=== PATIENT | male | born 1955 | race Caucasian/White ===

== ENCOUNTER 2019-09-07 22:43 | Emergency (ER) | payer BC, MEDICARE ==
[~2019-09-07] VITALS: Ht 180.3 cm; Wt 101.4 kg
[2019-09-08 00:05] LABS: INFLUENZA A AMPLIFICATION NEGATIVE (NEGATIVE); INFLUENZA B AMPLIFICATION NEGATIVE (NEGATIVE)
[2019-09-08] MEDS ORDERED: ACETAMINOPHEN TAB 650MG DOSE (2X325MG) PO ONE (00:15)
[2019-09-08 01:41] LABS: BASO % 0.7 % (0.0-1.0); EOS % 0.5 % (0.0-3.0); HEMATOCRIT 54.9 % (42.0-52.0); HEMOGLOBIN 17.2 g/dl (13.5-17.5); LYMPH # 0.5 10^3/uL (1.5-5.0); LYMPH % 7.9 % (24.0-44.0); MEAN CORPUSCULAR HEMOGLOBIN 27.7 pg (27.0-33.0); MEAN CORPUSCULAR HGB CONC 31.3 g/dl (32.0-36.5); MEAN CORPUSCULAR VOLUME 88.5 fl (80.0-96.0); MONO # 0.4 10^3/uL (0.0-0.8); MONO % 6.3 % (0.0-5.0); NEUTROPHILS # 5.1 10^3/uL (1.5-8.5); NEUTROPHILS % 83.9 % (36.0-66.0); PLATELET COUNT, AUTOMATED 182 10^3/uL (150-450); WHITE BLOOD COUNT 6.1 10^3/uL (4.0-10.0)
--- NOTE | 2019-09-08 02:05 | REPVR ---
PROCEDURE INFORMATION: Exam: CT Chest Without Contrast Exam date and time: 09/08/2019 1:28 AM Age: 63 years old Clinical history: Cough; Additional info: Chf vs pneumonia TECHNIQUE: Imaging protocol: Computed tomography of the chest without contrast. 3D rendering: MIP reconstructed images were created and reviewed. Radiation optimization: All CT scans at this facility use at least one of these dose optimization techniques: automated exposure control; mA and/or kV adjustment per patient size (includes targeted exams where dose is matched to clinical indication); or iterative reconstruction. COMPARISON: CR Chest, 2 view PA, Lat 09/08/2019 12:57 AM FINDINGS: Lungs: Bilateral dependent and linear atelectasis. Pleural space: Unremarkable. No pneumothorax. No pleural effusion. Heart: Atherosclerotic disease of the coronary arteries. Mediastinum: Small hiatal hernia. Suggestion of gastroesophageal reflux. Aorta: Atherosclerotic disease of the thoracic aorta. Lymph nodes: Unremarkable. No enlarged lymph nodes. Liver: Hepatomegaly and steatosis. Gallbladder and bile ducts: Cholelithiasis. No specific evidence of acute cholecystitis. Kidneys and ureters: Partially visualized simple left renal cyst measuring at least 1.6 cm in diameter. Bones/joints: Multilevel degenerative disc disease of the thoracic spine. Chronic appearing compression deformity of T6. Suggestion of an old healed fracture deformity of the sternum. Soft tissues: Unremarkable. IMPRESSION: Bilateral dependent and linear atelectasis. No evidence of pulmonary edema. Small hiatal hernia. Suggestion of gastroesophageal reflux. Hepatomegaly and steatosis. Cholelithiasis. No specific evidence of acute cholecystitis. Electronically signed by: Chong Gross On 09/08/2019 02:04:29 AM
[2019-09-08 02:23] LABS: BLOOD UREA NITROGEN 12 MG/DL (7-18); CALCIUM LEVEL 8.9 MG/DL (8.8-10.2); CARBON DIOXIDE LEVEL 22 MEQ/L (21-32); CHLORIDE LEVEL 106 MEQ/L (98-107); CREATININE FOR GFR 1.35 MG/DL (0.70-1.30); GLOMERULAR FILTRATION RATE 57.2 (>49); GLUCOSE, FASTING 126 MG/DL (70-100); NT-PRO BNP 151 PG/ML (<125); POTASSIUM SERUM 4.9 MEQ/L (3.5-5.1); SODIUM LEVEL 138 MEQ/L (136-145)
[2019-09-08 02:53] LABS: CK-MB VALUE MASS 1.7 NG/ML (<3.6); CPK CREATINE PHOSPHOKINASE 264 U/L (39-308); MB/CK RELATIVE INDEX 0.64 (< OR =4); TROPONIN I < 0.02 NG/ML (< 0.10)
[2019-09-08 03:21] VITALS: BP 111/66
--- NOTE | 2019-09-08 08:16 | REP ---
Chest x-ray: Two views. History: Cough. Findings: The patient is rotated slightly to the right. There is some scalloping of the right hemidiaphragm. Pleural angles are sharp. No infiltrate is seen. Heart is not enlarged. No significant bony abnormality is appreciated. Impression: No acute disease. Electronically Signed by Travis Park MD 09/08/2019 08:07 A
--- NOTE | 2019-09-09 21:54 | ECGEPIP ---
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
== END 2019-09-08 03:22 | disposition home or self-care (01) ==
LOC: M ED 22:43
DX: J06.9 Acute upper respiratory infection, unspecified (principal); B34.8 Other viral infections of unspecified site; I10 Essential (primary) hypertension; I25.10 Atherosclerotic heart disease of native coronary artery without angina pectoris; E78.5 Hyperlipidemia, unspecified; Z95.5 Presence of coronary angioplasty implant and graft

== ENCOUNTER 2021-08-25 16:20 | Emergency (ER) | payer BC, OTHER ==
[~2021-08-25] VITALS: Ht 180.3 cm; Wt 99.2 kg
[2021-08-25] MEDS ORDERED: ASPIRIN 81 MG CHEW TABLET PO ONE (17:55)
--- NOTE | 2021-08-25 18:19 | REP ---
INDICATION: CHEST PAIN. COMPARISON: 09/08/2019. TECHNIQUE: Single portable AP view of the chest was performed. FINDINGS: There is mild bibasilar fibro atelectatic change. There is no acute infiltrate. The heart is upper limits of normal in size. There is tortuosity of the thoracic aorta. The mediastinal silhouette is unchanged. IMPRESSION: No acute pulmonary disease.Stable chronic changes. <Electronically signed by José Diaz > 08/25/21 0145
[2021-08-25 18:22] LABS: BASO # 0.1 10^3/uL (0.0-0.2); BASO % 0.8 % (0.0-1.0); EOS # 0.2 10^3/uL (0.0-0.5); EOS % 2.4 % (0.0-3.0); HEMATOCRIT 53.5 % (42.0-52.0); HEMOGLOBIN 17.2 g/dl (13.5-17.5); LYMPH # 3.4 10^3/uL (1.5-5.0); LYMPH % 36.2 % (24.0-44.0); MEAN CORPUSCULAR HEMOGLOBIN 28.6 pg (27.0-33.0); MEAN CORPUSCULAR HGB CONC 32.1 g/dl (32.0-36.5); MONO # 0.7 10^3/uL (0.0-0.8); MONO % 6.9 % (2.0-8.0); NEUTROPHILS % 53.4 % (36.0-66.0); PLATELET COUNT, AUTOMATED 257 10^3/uL (150-450); RED BLOOD COUNT 6.01 10^6/uL (4.30-6.10); WHITE BLOOD COUNT 9.4 10^3/uL (4.0-10.0)
[2021-08-25 19:00] LABS: ALT/SGPT 33 U/L (12-78); BILIRUBIN,DIRECT 0.1 MG/DL (0.0-0.2); BILIRUBIN,TOTAL 0.4 MG/DL (0.2-1.0); BLOOD UREA NITROGEN 16 MG/DL (7-18); CALCIUM LEVEL 10.3 MG/DL (8.8-10.2); CARBON DIOXIDE LEVEL 31 MEQ/L (21-32); CHLORIDE LEVEL 104 MEQ/L (98-107); CREATININE FOR GFR 1.12 MG/DL (0.70-1.30); GLOMERULAR FILTRATION RATE > 60.0 (>49); GLUCOSE, FASTING 61 MG/DL (70-100); LIPASE 86 U/L (73-393); NT-PRO BNP 105 PG/ML (<125); POTASSIUM SERUM 3.8 MEQ/L (3.5-5.1); SODIUM LEVEL 141 MEQ/L (136-145)
[2021-08-25] MEDS ORDERED: ISOVUE-370 76% 100ML VIAL As Ordered ONE (19:26)
--- OUTSIDE RECORDS SUMMARY | 2021-08-25 19:27 | CCD ---
Author Author [facility] Organization [facility] Address Unknown Phone Unavailable Care Team Providers Care Senior Designer Name Role Phone Ricardo Urena MD Unavailable Unavailable Ricardo Urena MD Unavailable Unavailable Ricardo Urena MD Unavailable Unavailable Ricardo Urean MD Unavailable Unavailable Ricardo Urena MD Unavailable Unavailable Ricardo Urena MD Unavailable Unavailable Ricardo Urena MD Unavailable Unavailable Ricardo Urena MD Unavailable Unavailable Ricardo Urena MD Unavailable Unavailable Ricardo Urena MD Unavailable Unavailable Ricardo Urena MD Unavailable Unavailable Ricardo Urena MD Unavailable Unavailable Ricardo Urena MD Unavailable Unavailable Ricrado Urena MD Unavailable Unavailable Ricardo Urena MD Unavailable Unavailable Ricardo Urena MD Unavailable Unavailable Ricardo Urena MD Unavailable Unavailable Ricardo Urena MD Unavailable Unavailable Ricardo Urena MD Unavailable Unavailable Ricardo Urena MD Unavailable Unavailable Ricardo Urena MD Unavailable Unavailable Ricardo Urena MD Unavailable Unavailable Ricardo Urena MD Unavailable Unavailable Ricardo Urena MD Unavailable Unavailable Ricardo Urena MD Unavailable Unavailable Ricardo Urena MD Unavailable Unavailable Ricardo Urena MD Unavailable Unavailable Ricardo Urena MD Unavailable Unavailable Ricardo Urena MD Unavailable Unavailable Ricardo Urena MD Unavailable Unavailable Ricardo Urena MD Unavailable Unavailable Ricardo Urena MD Unavailable Unavailable Ricardo Urena MD Unavailable Unavailable Ricardo Urena MD Unavailable Unavailable Ricardo Urena MD Unavailable Unavailable Ricardo Urena MD Unavailable Unavailable Ricardo Urena MD Unavailable Unavailable Ricardo Urena MD Unavailable Unavailable Ricardo Urena MD Unavailable Unavailable Ricardo Urena MD Unavailable Unavailable Ricardo Urena MD Unavailable Unavailable Ricardo Urena MD Unavailable Unavailable Ricardo Urena MD Unavailable Unavailable Ricardo Urena MD Unavailable Unavailable Ricardo Urena MD Unavailable Unavailable Ricardo Urena MD Unavailable Unavailable Ricardo Urena MD Unavailable Unavailable Ricardo Urena MD Unavailable Unavailable Ricardo Urena MD Unavailable Unavailable UrenaRicardo MD Unavailable Unavailable UrenaRicardo MD Unavailable Unavailable UrenaRicardo MD Unavailable Unavailable Ricardo Urena MD Unavailable Unavailable Ricardo Urena MD Unavailable Unavailable Ricardo Urena MD Unavailable Unavailable Ricardo Urena MD Unavailable Unavailable Ricardo Urena MD Unavailable Unavailable Ricardo Urena MD Unavailable Unavailable Ricardo Urena MD Unavailable Unavailable Ricardo Urena MD Unavailable Unavailable Ricardo Urena MD Unavailable Unavailable Ricardo Urena MD Unavailable Unavailable Ricardo Urena MD Unavailable Unavailable Ricardo Urena MD Unavailable Unavailable Ricardo Urena MD Unavailable Unavailable Ricardo Urena MD Unavailable Unavailable Ricardo Urena MD Unavailable Unavailable Ricardo Urena MD Unavailable Unavailable Ricardo Urena MD Unavailable Unavailable Ricardo Urena MD Unavailable Unavailable Ricardo Urena MD Unavailable Unavailable Ricardo Urena MD Unavailable Unavailable Ricardo Urena MD Unavailable Unavailable Ricardo Urena MD Unavailable Unavailable Ricardo Urena MD Unavailable Unavailable Ricardo Urena MD Unavailable Unavailable Ricardo Urena MD Unavailable Unavailable Ricardo Urena MD Unavailable Unavailable Ricardo Urena MD Unavailable Unavailable Ricardo Urena MD Unavailable Unavailable Ricardo Urena MD Unavailable Unavailable Ricardo Urena MD Unavailable Unavailable Ricardo Urena MD Unavailable Unavailable Ricardo Urena MD Unavailable Unavailable Ricardo Urena MD Unavailable Unavailable Ricardo Urena MD Unavailable Unavailable Ricardo Urena MD Unavailable Unavailable Ricardo Urena MD Unavailable Unavailable Ricardo Urena MD Unavailable Unavailable Ricardo Urena MD Unavailable Unavailable Ricardo Urena MD Unavailable Unavailable Ricardo Urena MD Unavailable Unavailable Ricardo Urena MD Unavailable Unavailable Ricardo Urena MD Unavailable Unavailable Edwige Arizmendier PA-C Unavailable Unavailable Edwige Arizmendi Christopher PA-C Unavailable Unavailable Edwige Arizmendi Christopher PA-C Unavailable Unavailable Edwige Arizmendi Christopher PA-C Unavailable Unavailable Edwige Arizmendi Christopher PA-C Unavailable Unavailable Edwige Arizmendi Christopher PA-C Unavailable Unavailable Edwige Arizmendi Christopher PA-C Unavailable Unavailable Edwige Arizmendi Christopher PA-C Unavailable Unavailable Arizmendi, M Christopher PA-C Unavailable Unavailable Arizmendi, M Christopher PA-C Unavailable Unavailable Arizmendi, M Christopher PA-C Unavailable Unavailable Arizmendi, M Christopher PA-C Unavailable Unavailable Arizmendi, M Christopher PA-C Unavailable Unavailable Arizmendi, M Christopher PA-C Unavailable Unavailable Arizmendi, M Christopher PA-C Unavailable Unavailable Arizmendi, M Christopher PA-C Unavailable Unavailable Arizmendi, M Christopher PA-C Unavailable Unavailable Arizmendi, M Christopher PA-C Unavailable Unavailable Arizmendi, M Christopher PA-C Unavailable Unavailable Arizmendi, M Christopher PA-C Unavailable Unavailable Arizmendi, M Christopher PA-C Unavailable Unavailable Arizmendi, M Christopher PA-C Unavailable Unavailable Arizmendi, M Christopher PA-C Unavailable Unavailable Arizmendi, M Christopher PA-C Unavailable Unavailable Arizmendi, M Christopher PA-C Unavailable Unavailable Arizmendi, M Christopher PA-C Unavailable Unavailable Re-disclosure Warning The records that you are about to access may contain information from federally-assisted alcohol or drug abuse programs. If such information is present, then the following federally mandated warning applies: This information has been disclosed to you from records protected by federal confidentiality rules (42 CFR part 2). The federal rules prohibit you from making any further disclosure of this information unless further disclosure is expressly permitted by the written consent of the person to whom it pertains or as otherwise permitted by 42 CFR part 2. A general authorization for the release of medical or other information is NOT sufficient for this purpose. The Federal rules restrict any use of the information to criminally investigate or prosecute any alcohol or drug abuse patient.The records that you are about to access may contain highly sensitive health information, the redisclosure of which is protected by Article 27-F of the [facility] Public Health law. If you continue you may have access to information: Regarding HIV / AIDS; Provided by facilities licensed or operated by the [facility] Office of Mental Health; or Provided by the [facility] Office for People With Developmental Disabilities. If such information is present, then the following [facility] mandated warning applies: This information has been disclosed to you from confidential records which are protected by state law. State law prohibits you from making any further disclosure of this information without the specific written consent of the person to whom it pertains, or as otherwise permitted by law. Any unauthorized further disclosure in violation of state law may result in a fine or fdc sentence or both. A general authorization for the release of medical or other information is NOT sufficient authorization for further disc losure. Family History Family Member Name Family Member Gender Family Member Status Date o f Status Description Data Source(s) Unknown Male Problem [facility] ([facility]) Encounters Encounter Providers Location Date Indications Data Source(s ) Rajat Urena MD: [address] [place] [id number], Ph. Attender: Rajat Urena MD PA - [facility] Medical 04/27/2021 12:00:00 AM EDT [facility] ([facility]) Outpatient Attender: Elio Arizmendi PA-C 03/30/2021 09:04:58 AM EDT - 03/30/2021 09:29:57 AM EDT [facility] ([facility]) Immunizations Vaccine Date Status Description Data Source(s) COVID-19 VACCINE Moderna 08/04/2021 12:00:00 AM EST completed [facility] Vaccine Series Complete: YESThis Data wa s Submitted to [facility] Via [employer]. COVID-19 VACCINE Moderna 01/06/2021 12:00:00 AM EDT completed [facility] Vaccine Series Complete: YESThis Data wa s Submitted to [facility] Via [employer]. COVID-19 VACC,MRNA(MODERNA)/PF 01/06/2021 12:00:00 AM EDT completed [facility] COVID-19 VACCINE Moderna 12/06/2020 12:00:00 AM EDT completed [facility] Vaccine Series Complete: NOThis Data was Submitted to [facility] Via [employer]. COVID-19 VACCINE, MRNA-1273, LNP-S (MODERNA)/PF 12/06/2020 1 2:00:00 AM EDT completed [facility] Medications Medication Brand Name Start Date Product Form Dose Route Admi nistrative Instructions Pharmacy Instructions Status Indications Reaction Description Data Source(s) 100 mcg/0.5 mL 08/04/2021 12:00:00 AM EST suspension 0 INJECT DIRECTED (THIRD DOSE) INJECT DIRECTED (THIRD DOSE) SOLD: 08/04/2021 [facility] 60 mcg (15 mcg x 4)/0.5 mL 08/04/2021 12:00:00 AM EST sy[place] e 0 INJECT DIRECTED INJECT DIRECTED SOLD: 08/04/2021 [facility] Insurance Providers Payer name Policy type / Coverage type Policy ID Covered constitution party ID Covered constitution party's relationship to ware Policy Ware Plan Information [facility] [id number] Self [id number] [facility] [employer] [id number] 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 [id number] Employee [id number] Excell[employer] BCBS Medicare Advantage P [id number] S [id number] [employer] BCBS B [id number] S VYM [id number] MEDICAID M [id number] S [id number] MEDICARE C [id number] S [id number] A BCBS HMO BLUE [id number] SP VYM [id number] MEDICARE [id number] SP [id number] A BS Medicare Blue Ppo/Hmo Commercial [id number] Self V [id number] BS Medicare Blue Ppo/Hmo Commercial [id number] Self [employer] GOLD [id number] SP [id number] MEDICAID [id number] SP [id number] BCBS HMO BLUE [id number] SP VYM [id number] Self Pay P UNAVAILABLE S UNAVAILA BLE Problems, Conditions, and Diagnoses Code Display Name Description Problem Type Effective Dates Data Source(s) [id number] Coronary arteriosclerosis Coronary Arteriosclerosis Pr oblem 04/27/2021 12:00:00 AM EDT [place] ([facility]) [id number] Tobacco user Tobacco User Problem 04/27/2021 12:00:00 A M EDT [place] ([facility]) Surgeries/Procedures No Information Results No Information Social History No Information Vital Signs ID Date Data Source UNK Name Value Range Interpretation Code Description Data Source(s) Diastolic blood pressure 89 mm[Hg] 89 mm[Hg] [facility] ([facility]) Systolic blood pressure 131 mm[Hg] 131 mm[Hg] A [facility] ([facility]) Body weight 3536 [oz_av] 3536 [oz_av] [facility] ([facility])
--- NOTE | 2021-08-25 20:08 | REPVR ---
PROCEDURE INFORMATION: Exam: CTA Chest With Contrast Exam date and time: 08/25/2021 7:34 PM Age: 65 years old Clinical indication: Pain; Chest pressure; Additional info: Chest pain TECHNIQUE: Imaging protocol: Computed tomographic angiography of the chest with contrast. 3D rendering (Not supervised by radiologist): MIP and/or 3D reconstructed images were created by the technologist. Radiation optimization: All CT scans at this facility use at least one of these dose optimization techniques: automated exposure control; mA and/or kV adjustment per patient size (includes targeted exams where dose is matched to clinical indication); or iterative reconstruction. Contrast material: ISOVUE 370; Contrast volume: 75 ml; Contrast route: INTRAVENOUS (IV); COMPARISON: CT Chest without contrast 09/08/2019 1:15 AM FINDINGS: Pulmonary arteries: Normal. No pulmonary emboli. Aorta: Unremarkable. No aortic aneurysm. No aortic dissection. Lungs: Clear. No consolidation. No masses. Pleural spaces: No pneumothorax. No pleural effusion. Heart: Mild cardiomegaly. No pericardial effusion. Mild coronary artery atherosclerotic disease. Lymph nodes: Unremarkable. No enlarged lymph nodes. Bones/joints: Unremarkable. No acute fracture. Soft tissues: Unremarkable. IMPRESSION: 1. No acute findings. No pulmonary embolism. 2. Mild cardiomegaly. Electronically signed by: Obey Ramos On 08/25/2021 20:08:32 PM
[2021-08-25 21:45] VITALS: BP 133/63
--- NOTE | 2021-08-26 01:07 | ECGEPIP ---
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
--- NOTE | 2021-08-26 08:03 | ECGEPIP ---
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
== END 2021-08-25 22:06 | disposition home or self-care (01) ==
LOC: M ED 16:20
DX: R07.89 Other chest pain (principal); I25.10 Atherosclerotic heart disease of native coronary artery without angina pectoris; I51.7 Cardiomegaly; E78.5 Hyperlipidemia, unspecified
CPT/HCPCS: 36415; 71045; 71275; 80048; 80076; 83690; 83880; 84443; 84484; 85025; 93005; 93041; 94760; 99285; Q9967

== ENCOUNTER 2024-10-01 15:06 | Emergency (ER) | payer MEDICARE, OTHER ==
[2024-10-01 15:55] LABS: BASO # 0.1 10^3/uL (0.0-0.2); BASO % 0.6 % (0.0-1.0); EOS # 0.3 10^3/uL (0.0-0.5); EOS % 2.6 % (0.0-3.0); HEMATOCRIT 50.9 % (42.0-52.0); HEMOGLOBIN 16.6 g/dl (13.5-17.5); LYMPH # 2.8 10^3/uL (1.5-5.0); LYMPH % 21.8 % (24.0-44.0); MEAN CORPUSCULAR HEMOGLOBIN 28.7 pg (27.0-33.0); MEAN CORPUSCULAR HGB CONC 32.6 g/dl (32.0-36.5); MEAN CORPUSCULAR VOLUME 88.1 fl (80.0-96.0); MONO % 7.9 % (2.0-8.0); NEUTROPHILS # 8.5 10^3/uL (1.5-8.5); NEUTROPHILS % 66.7 % (36.0-66.0); PLATELET COUNT, AUTOMATED 176 10^3/uL (150-450); RED BLOOD COUNT 5.78 10^6/uL (4.30-6.10); WHITE BLOOD COUNT 12.7 10^3/uL (4.0-10.0)
[2024-10-01 15:57] LABS: VENOUS BASE EXCESS -3.8 (-2.0-2.0); VENOUS HCO3 22.6 MMOL/L (23.0-27.0); VENOUS O2 SATURATION 75.4 % (60.0-80.0); VENOUS PARTIAL PRESSURE CO2 45.2 mmHg (38.0-50.0); VENOUS PH 7.316 UNITS (7.330-7.430); VENOUS STANDARD HCO3 20.8 MMOL/L; VENOUS TOTAL CO2 23.9 MMOL/L (24.0-28.0)
[2024-10-01 16:23] LABS: OSMOLALITY SERUM 316 MOSM/KG (280-301)
[2024-10-01 16:35] LABS: ETHYL ALCOHOL (ETHANOL) < 0.003 % (0.000-0.010)
[2024-10-01 16:37] LABS: SALICYLATE LEVEL < 3.0 MG/DL (<30)
[2024-10-01 16:38] LABS: ALKALINE PHOSPHATASE 73 U/L (40-129); ALT/SGPT 49 U/L (7.0-40); AST/SGOT 34 U/L (<34); BILIRUBIN,DIRECT 0.1 MG/DL (<0.4); BILIRUBIN,TOTAL 0.5 MG/DL (0.3-1.2); BLOOD UREA NITROGEN 24 MG/DL (9-23); CALCIUM LEVEL 9.8 MG/DL (8.3-10.6); CARBON DIOXIDE LEVEL 20 MMOL/L (20-31); CHLORIDE LEVEL 106 MMOL/L (98-107); CREATININE FOR GFR 2.03 MG/DL (0.70-1.30); GLUCOSE, FASTING 157 MG/DL (74-106); MAGNESIUM LEVEL 1.8 MG/DL (1.8-2.4); POTASSIUM SERUM 4.4 MMOL/L (3.5-5.1); SODIUM LEVEL 137 MMOL/L (136-145); THYROID STIMULATING HORMONE 3.575 uIU/ML (0.55-4.78); TOTAL PROTEIN 7.9 G/DL (5.7-8.2)
[2024-10-01] MEDS ORDERED: HOME MED LIST COMPLETE! XX SCH (17:35)
[2024-10-01] MEDS ORDERED: LR 1,000 ML IV SCH (18:45)
[2024-10-01 19:05] LABS: KETONE, URINE AUTO RFX NEGATIVE (NEGATIVE); MUCUS, URINE RFX SMALL (NEGATIVE); NITRITE, URINE AUTO RFX NEGATIVE (NEGATIVE); RBC, URINE AUTO RFX 12 /HPF (0-3); SQUAM EPITHELIAL CELL UR AURFX 0 /HPF (0-6); WBC, URINE AUTO RFX 10 /HPF (0-3)
[2024-10-01] MEDS: LR 1,000 ML IV ONE (19:05)
[2024-10-01 19:06] LABS: LEUKOCYTE ESTERASE UR AUTO RFX TRACE (NEGATIVE)
[2024-10-01 19:22] LABS: AMPHETAMINES LEVEL URINE NEGATIVE (NEGATIVE); BARBITURATES URINE NEGATIVE (NEGATIVE); BENZODIAZEPINES URINE NEGATIVE (NEGATIVE); CANNABINOIDS URINE NEGATIVE (NEGATIVE); COCAINE METABOLITE URINE NEGATIVE (NEGATIVE); METHADONE URINE NEGATIVE (NEGATIVE); OPIATES URINE NEGATIVE (NEGATIVE); PHENCYCLIDINE URINE NEGATIVE (NEGATIVE)
[2024-10-01] MEDS ORDERED: ISOVUE-370 76% 100ML VIAL As Ordered ONE (19:26)
[2024-10-01] MEDS: ASPIRIN 81MG CHEW TABLET PO SCH (19:41)
[2024-10-01] MEDS: DOXYCYCLINE HYCLATE 100MG TABLET PO SCH (19:41)
[2024-10-01] MEDS ORDERED: ACETAMINOPHEN 325 MG TAB PO PRN (19:55)
[2024-10-01] MEDS: cefTRIAXone SOD 1 GM in DEXTROSE 5% (D5W) ADV/MINI-BAG 50 ML IV SCH (19:58)
[2024-10-01] MEDS ORDERED: DEXTROSE 50% 50ML SYRINGE IV PRN (20:20)
[2024-10-01] MEDS ORDERED: GLUCAGON INJ 1MG VIAL SC PRN (20:20)
[2024-10-01] MEDS ORDERED: GLUCOSE 4 GM CHEW PO PRN (20:20)
[2024-10-01] MEDS: ATORVASTATIN 20 MG TAB PO SCH (20:32)
[2024-10-01] MEDS: LR 1,000 ML IV SCH (21:13)
[2024-10-01 21:18] LABS: HEMOGLOBIN A1c 5.9 % (4.0-6.0)
[2024-10-01 23:39] LABS: CALCIUM LEVEL 8.7 MG/DL (8.3-10.6); CHOLESTEROL RISK RATIO 6.13 (<5); CREATININE FOR GFR 1.65 MG/DL (0.70-1.30); GLOMERULAR FILTRATION RATE 44.5 (>49); HDL CHOLESTEROL 33.4 MG/DL (>40); LDL CHOLESTEROL 128.8 MG/DL (<100); NON-HDL-C 171.6 MG/DL; POTASSIUM SERUM 5.2 MMOL/L (3.5-5.1)
[2024-10-02] MEDS: INSULIN LISPRO (NovoLOG) PER UNIT SC SCH (00:40)
[2024-10-02 06:39] LABS: HEMATOCRIT 47.6 % (42.0-52.0); MEAN CORPUSCULAR HEMOGLOBIN 29.2 pg (27.0-33.0); MEAN CORPUSCULAR HGB CONC 33.6 g/dl (32.0-36.5); MEAN CORPUSCULAR VOLUME 86.9 fl (80.0-96.0); PLATELET COUNT, AUTOMATED 144 10^3/uL (150-450); RED BLOOD COUNT 5.48 10^6/uL (4.30-6.10); WHITE BLOOD COUNT 13.9 10^3/uL (4.0-10.0)
[2024-10-02 06:51] LABS: CALCIUM LEVEL 8.7 MG/DL (8.3-10.6); CREATININE FOR GFR 1.56 MG/DL (0.70-1.30); GLOMERULAR FILTRATION RATE 47.5 (>49); POTASSIUM SERUM 4.8 MMOL/L (3.5-5.1)
[2024-10-02] MEDS ORDERED: HEPARIN SOD (PORCINE) 5000UNITS/ML 1ML VIAL/SYRINGE IV PRN (07:55)
[2024-10-02] MEDS ORDERED: HEPARIN SOD (PORCINE) 5000UNITS/ML 1ML VIAL/SYRINGE IV ONE (07:55)
[2024-10-02] MEDS: HEPARIN DRIP 25,000 UNITS in IV 1 EA IV SCH (08:45)
[2024-10-02] MEDS ORDERED: ENOXAPARIN 40MG/0.4ML SYRINGE (J1650 PER 10MG) SC SCH (09:00)
[2024-10-02] MEDS ORDERED: ATORVASTATIN 20 MG TAB PO SCH (09:00)
[2024-10-02 09:03] VITALS: BP 175/70; TEMP 98; O2SAT 98
== END 2024-10-02 09:11 | disposition short-term general hospital (02) ==
LOC: M ED 15:06 → EDBD 15:06 → M ED 10-02 09:11
DX: R55 Syncope and collapse (principal); I73.9 Peripheral vascular disease, unspecified; I25.2 Old myocardial infarction; I25.119 Atherosclerotic heart disease of native coronary artery with unspecified angina pectoris; F17.210 Nicotine dependence, cigarettes, uncomplicated
CPT/HCPCS: 70450; 71045; 71250; 74176; 75635; 80047; 80048; 80061; 80076; 80143; 80307; 81001; 82077; 82140; 82550; 82803; 83036; 83605; 83735; 83930; 84443; 84484; 85025; 85027; 85730; 87040; 87086; 87486; 87581; 87633; 87798; 93005; 93041; 93971; 94760; 96365; 96366; 96375; 99285; J0696; Q9967

== ENCOUNTER → 2025-07-27 | Outpatient (REF) | payer MEDICARE | LOC: M LAB REF 16:40 | PROVIDERS: ATTEND Internal Medicine Addiction Medicine | DX: E87.5 Hyperkalemia (principal) ==

== ENCOUNTER 2025-08-06 10:32 | Emergency (ER) | payer MEDICARE, OTHER ==
[~2025-08-06] VITALS: Ht 180.3 cm; Wt 98.5 kg
[2025-08-06 11:37] LABS: BASO # 0.1 10^3/uL (0.0-0.2); BASO % 0.7 % (0.0-1.0); EOS # 0.5 10^3/uL (0.0-0.5); EOS % 6.3 % (0.0-3.0); LYMPH # 2.9 10^3/uL (1.5-5.0); LYMPH % 35.4 % (24.0-44.0); MONO # 0.8 10^3/uL (0.0-0.8); MONO % 9.9 % (2.0-8.0); NEUTROPHILS # 3.9 10^3/uL (1.5-8.5); NEUTROPHILS % 47.5 % (36.0-66.0); PLATELET COUNT, AUTOMATED 223 10^3/uL (150-450)
[2025-08-06 11:43] LABS: KETONE, URINE AUTO RFX NEGATIVE (NEGATIVE); LEUKOCYTE ESTERASE UR AUTO RFX NEGATIVE (NEGATIVE); NITRITE, URINE AUTO RFX NEGATIVE (NEGATIVE); RBC, URINE AUTO RFX TNTC /HPF (0-3); SQUAM EPITHELIAL CELL UR AURFX 1 /HPF (0-6)
[2025-08-06 11:44] LABS: WBC, URINE AUTO RFX 69 /HPF (0-3)
[2025-08-06 12:10] LABS: CALCIUM LEVEL 9.3 MG/DL (8.3-10.6); CARBON DIOXIDE LEVEL 25.0 MMOL/L (20-31); CHLORIDE LEVEL 104.0 MMOL/L (98-107); CREATININE FOR GFR 1.41 MG/DL (0.70-1.30); GLOMERULAR FILTRATION RATE 54.6 (>49); POTASSIUM SERUM 5.0 MMOL/L (3.5-5.1); SODIUM LEVEL 139.0 MMOL/L (136-145)
[2025-08-06 12:11] LABS: INR 1.07
[2025-08-06] MEDS ORDERED: ATOR1TAB19 PO (12:31)
[2025-08-06] MEDS ORDERED: ASPI81TA26 PO (12:31)
[2025-08-06] MEDS ORDERED: FURO40TA2 PO (12:31)
[2025-08-06] MEDS ORDERED: ACET-861 PO (12:31)
[2025-08-06] MEDS ORDERED: ELIQ5TAB PO (12:31)
[2025-08-06] MEDS ORDERED: LORA-1041 PO (12:31)
[2025-08-06] MEDS ORDERED: HOME MED LIST COMPLETE! XX SCH (12:35)
[2025-08-06] MEDS ORDERED: ISOVUE-370 76% 100 ML VIAL As Ordered ONE (13:34)
[2025-08-06 15:24] VITALS: BP 136/97; TEMP 97; O2SAT 97
== END 2025-08-06 15:26 | disposition home or self-care (01) ==
LOC: M ED 10:32
DX: R31.9 Hematuria, unspecified (principal); N40.0 Benign prostatic hyperplasia without lower urinary tract symptoms; I25.2 Old myocardial infarction; E78.5 Hyperlipidemia, unspecified; N20.0 Calculus of kidney; Z79.1 Long term (current) use of non-steroidal anti-inflammatories (NSAID); Z79.01 Long term (current) use of anticoagulants; Z79.899 Other long term (current) drug therapy
CPT/HCPCS: 36415; 74177; 80048; 81001; 85025; 85610; 87086; 99284; Q9967

== ENCOUNTER 2025-08-24 11:50 | Emergency (ER) | payer OTHER ==
[~2025-08-24] VITALS: Ht 180.3 cm; Wt 104.0 kg
[~2025-08-24 11:50] MED LIST: ACET-861 PO; ASPI81TA26 PO; ATOR1TAB19 PO; ELIQ5TAB PO; FURO40TA2 PO; LORA-1041 PO
[2025-08-24 12:00] VITALS: TEMP 97.6
[2025-08-24 12:14] LABS: BASO # 0.1 10^3/uL (0.0-0.2); BASO % 0.8 % (0.0-1.0); EOS # 0.4 10^3/uL (0.0-0.5); EOS % 4.8 % (0.0-3.0); LYMPH # 3.0 10^3/uL (1.5-5.0); LYMPH % 34.2 % (24.0-44.0); MONO # 1.1 10^3/uL (0.0-0.8); MONO % 12.9 % (2.0-8.0); NEUTROPHILS # 4.1 10^3/uL (1.5-8.5); NEUTROPHILS % 47.1 % (36.0-66.0); PLATELET COUNT, AUTOMATED 253 10^3/uL (150-450)
[2025-08-24 12:36] LABS: INR 0.92
[2025-08-24 12:47] LABS: CK-MB VALUE MASS 3.4 NG/ML (<3.6)
[2025-08-24 12:50] LABS: ALT/SGPT 39.0 U/L (7.0-40); AST/SGOT 28.0 U/L (<34); CALCIUM LEVEL 9.1 MG/DL (8.3-10.6); CARBON DIOXIDE LEVEL 27.0 MMOL/L (20-31); CHLORIDE LEVEL 105.0 MMOL/L (98-107); CPK CREATINE PHOSPHOKINASE 245.0 U/L (46-171); CREATININE FOR GFR 1.63 MG/DL (0.70-1.30); GLOMERULAR FILTRATION RATE 45.9 (>49); MB/CK RELATIVE INDEX 1.38 (< OR =4); POTASSIUM SERUM 4.4 MMOL/L (3.5-5.1); SODIUM LEVEL 141.0 MMOL/L (136-145)
[2025-08-24] MEDS ORDERED: ISOVUE-370 76% 100 ML VIAL As Ordered ONE (13:11)
[2025-08-24] MEDS: NITROGLYCERIN 0.4 MG SUBL TABLET SL PRN (13:18)
[2025-08-24 13:50] VITALS: BP 143/78
[2025-08-24 14:01] LABS: CK-MB VALUE MASS 3.2 NG/ML (<3.6)
[2025-08-24 14:05] LABS: CPK CREATINE PHOSPHOKINASE 245.0 U/L (46-171); MB/CK RELATIVE INDEX 1.3 (< OR =4)
[2025-08-24] MEDS ORDERED: HOME MED LIST COMPLETE! XX SCH (14:30)
[2025-08-24 15:45] VITALS: BP 116/71; O2SAT 96
== END 2025-08-24 16:11 | disposition home or self-care (01) ==
LOC: M ED 11:50 → EDBD 11:50 → M ED 16:11
DX: R07.9 Chest pain, unspecified (principal); I25.2 Old myocardial infarction; E78.5 Hyperlipidemia, unspecified; F17.210 Nicotine dependence, cigarettes, uncomplicated; Z79.1 Long term (current) use of non-steroidal anti-inflammatories (NSAID); Z79.899 Other long term (current) drug therapy
CPT/HCPCS: 36415; 71045; 71275; 80048; 80076; 82550; 82553; 83690; 84484; 85025; 85610; 93005; 93041; 94760; 99285; Q9967

== ENCOUNTER → 2025-09-02 | Outpatient (REF) | payer OTHER ==
[2025-09-02 17:15] LABS: APPEARANCE, URINE CLEAR (CLEAR); BACTERIA, URINE AUTO NEGATIVE (NEGATIVE); BILIRUBIN, URINE AUTO NEGATIVE (NEGATIVE); BLOOD, URINE BLOOD NEGATIVE (NEGATIVE); GLUCOSE, URINE (UA) AUTO NEGATIVE (NEGATIVE); KETONE, URINE AUTO NEGATIVE (NEGATIVE); LEUKOCYTE ESTERASE, URINE AUTO NEGATIVE (NEGATIVE); NITRITE, URINE AUTO NEGATIVE (NEGATIVE); PROTEIN, URINE AUTO NEGATIVE (NEGATIVE); RBC, URINE AUTO 0 /HPF (0-3); SPECIFIC GRAVITY URINE AUTO 1.010 (1.002-1.035); SQUAMOUS EPITHELIAL CELL UR AU 0 /HPF (0-6); UROBILINOGEN, URINE AUTO 0.2 mg/dL (0.0-2.0); WBC, URINE AUTO 0 /HPF (0-3)
== END ==
LOC: M SMT 16:48
PROVIDERS: ATTEND Urology
DX: R31.0 Gross hematuria (principal); R82.89 Other abnormal findings on cytological and histological examination of urine